=== PATIENT | female | born 1945 | race Caucasian/White ===

== ENCOUNTER 2018-12-19 15:55 | Outpatient (REF) | payer MEDICARE, SELFPAY ==
[2018-12-19 21:21] LABS: TSH (W/Ref FT4) 2.73 uIU/mL (0.358-3.74)
== END 2018-12-19 16:15 ==
LOC: NCHCN 15:55
PROVIDERS: PCP Family Medicine; Visit Provider Family Medicine
DX: E03.9 Hypothyroidism, unspecified (principal)
CPT/HCPCS: 84443

== ENCOUNTER 2021-06-09 15:10 | Outpatient (REF) | payer MEDICARE, SELFPAY ==
[2021-06-09 19:37] LABS: FREE T4 0.91 ng/dL (0.76-1.46)
== END 2021-06-09 15:11 | disposition home or self-care (01) ==
LOC: NCHCN 15:10
PROVIDERS: PCP Family Medicine; Visit Provider Family Medicine
DX: E03.9 Hypothyroidism, unspecified (principal)
CPT/HCPCS: 84439

== ENCOUNTER 2022-10-19 15:40 | Outpatient (REF) | payer MEDICARE, SELFPAY ==
--- NOTE | 2022-10-19 14:40 | PAPFT_PTH ---
PATIENT: Samantha Cruz LOC: [facility]#:[id number] AGE/SX: 77/F ROOM: RE10/19/[address]: Inga Mcnamara V : 1945 BED: DIS: 10/19/2022 SPEC #: [id number] RECD: 10/19/22 18:26 STATUS: CASSIE REWalker #: [id number] ALFREDO: 10/19/22 14:[address]: Inga Mcnamara V DEPT: [facility] Cytology RECD BY: Teresa Vazquez Tissues: 1 - CX/ENDOCX FOR PAP SMEARS Procedures: PAP THIN PREP/[facility] Screening HPV DNA PROBE Comments: [id number]
[2022-10-19 20:06] LABS: TSH (W/Ref FT4) 2.31 uIU/mL (0.36-3.74)
== END 2022-10-19 15:41 | disposition home or self-care (01) ==
LOC: NCHCN 15:40
PROVIDERS: PCP Family Medicine; Visit Provider Family Medicine
DX: E03.9 Hypothyroidism, unspecified (principal); Z01.419 Encounter for gynecological examination (general) (routine) without abnormal findings; Z11.51 Encounter for screening for human papillomavirus (HPV)
CPT/HCPCS: 88142; 84443; 87624